=== PATIENT | female | born 1940 | race Caucasian/White ===

== ENCOUNTER 2017-07-24 14:53 | Inpatient (IN) | payer MEDICARE, OTHER ==
[~2017-07-24] VITALS: Ht 160 cm; Wt 52.2 kg
[2017-07-24 15:00] VITALS: BP 116/57; PULSE 75; RESP 18; Ht 160 cm; Wt 52.2 kg
[2017-07-24 16:18] LABS: ADD UMIC NO; UR ASCORBIC ACID NEGATIVE (NEGATIVE); UR BILIRUBIN (Dip) NEGATIVE (NEGATIVE); UR BLOOD (Dip) NEGATIVE (NEGATIVE); UR CLARITY CLEAR (CLEAR); UR COLOR YELLOW (YELLOW); UR GLUCOSE (Dip) NEGATIVE (NEGATIVE); UR KETONES (Dip) NEGATIVE (NEGATIVE); UR LEUKOCYTE ESTERASE (Dip) NEGATIVE Leu/ul (NEGATIVE); UR NITRITE (Dip) NEGATIVE (NEGATIVE); UR SPECIFIC GRAVITY (Dip) 1.009 (1.003-1.030); UR TOTAL PROTEIN (Dip) NEGATIVE (NEGATIVE); UR UROBILINOGEN (Dip) NEGATIVE (NEGATIVE)
[2017-07-24] MEDS ORDERED: BISACODYL 10 MG SUPP PR PRN (16:30)
[2017-07-24] MEDS ORDERED: LACTULOSE 30ML CUP PO PRN (16:30)
[2017-07-24] MEDS ORDERED: MAGNESIUM HYDROXIDE 30ML CUP PO PRN (16:30)
[2017-07-24] MEDS ORDERED: ACETAMINOPHEN 325 MG TAB PO PRN (16:30)
[2017-07-24 20:07] VITALS: BP 104/62; RESP 18
[2017-07-24] MEDS: SENNA TAB PO SCH (21:48)
[2017-07-24] MEDS: LISINOPRIL 20 MG TAB PO SCH (21:48)
[2017-07-24] MEDS: DOCUSATE SODIUM 100 MG CAP PO SCH (21:48)
[2017-07-25 02:10] VITALS: BP 110/65; RESP 18
[2017-07-25 07:00] VITALS: BP 140/68; RESP 18
[2017-07-25 07:34] LABS: BASOPHIL # 0.1 10^3/ul (0.0-0.1); EOSINOPHILS # 0.1 10^3/ul (0.0-0.5); EOSINOPHILS % 1.3 % (0.0-7.0); HEMATOCRIT 41.6 % (37.0-47.0); HEMOGLOBIN 13.9 g/dl (12.0-16.0); LYMPHOCYTES # 1.5 10^3/ul (0.8-2.9); LYMPHOCYTES % 22.1 % (15.0-51.0); MEAN CORPUSCULAR HEMOGLOBIN 30.7 pg (29.0-33.0); MEAN CORPUSCULAR HGB CONC 33.4 g/dl (32.0-37.0); MEAN CORPUSCULAR VOLUME 91.8 fl (82.0-101.0); MEAN PLATELET VOLUME 9.7 fl (7.4-10.4); MONOCYTE # 0.6 10^3/ul (0.3-0.9); MONOCYTES % 8.4 % (0.0-11.0); NEUTROPHIL # 4.6 10^3/ul (1.6-7.5); NEUTROPHILS % 66.8 % (39.0-77.0); PLATELET COUNT 259 10^3/UL (140-415); RED BLOOD COUNT 4.53 10^6/ul (4.20-5.40); WHITE BLOOD COUNT 6.9 10^3/ul (4.8-10.8)
[2017-07-25 08:08] LABS: ALBUMIN 3.7 g/dl (3.3-4.9); ALBUMIN/GLOBULIN RATIO 1.15; BILIRUBIN,INDIRECT 0.4 mg/dl (0-1.1); BILIRUBIN,TOTAL 0.4 mg/dl (0.2-1.3); CALCIUM 9.9 mg/dl (8.4-10.2); CHOL/HDL RATIO 1.9 RATIO; CREATININE 0.56 mg/dl (0.44-1.00); TOTAL PROTEIN 6.9 g/dl (6.1-8.1)
[2017-07-25 08:18] LABS: THYROID STIMULATING HORMONE 0.615 MIU/L (0.465-4.680)
[2017-07-25] MEDS: DOCUSATE SODIUM 100 MG CAP PO SCH ×2 (08:57→21:00)
[2017-07-25] MEDS: LISINOPRIL 20 MG TAB PO SCH ×2 (08:57→21:17)
[2017-07-25] MEDS: AMLODIPINE 10 MG TAB PO SCH (08:58)
--- NOTE | 2017-07-25 12:16 | CONS ---
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 ACTIVE COMORBIDITIES: 1. Hyperlipidemia. 2. Hypertension. 3. Dysphagia, on mechanical soft diet. 4. Impairments in self-care, mobility, and mild cognition. HISTORY OF PRESENT ILLNESS: The patient is a very pleasant 76-year-old left- handed female who had a recent admission for intracranial hemorrhage who was discharged home, but then returned to the emergency room with worsening right- sided weakness. Imaging studies revealed left pontine hemorrhage. The patient noted to have significant impairments in self-care and mobility as compared to baseline, and has been cleared to transfer to the rehabilitation unit for comprehensive interdisciplinary rehab care. FUNCTIONAL HISTORY: Prior to recent events, she was independent in self-care tasks and mobility. Currently, she requires moderate to maximal assist for self -care and mobility tasks. I have reviewed the preadmission screen and the patient's current functional status is consistent with the preadmission screen. SOCIAL HISTORY: The patient lives at home with family and hopes to return there upon discharge. PAST MEDICAL HISTORY: 1. Hyperlipidemia. 2. Hypertension. CURRENT MEDICATIONS: 1. Lisinopril 20 mg p.o. every day. 2. Amlodipine 10 mg p.o. every day. ALLERGIES: THE PATIENT WITH NO KNOWN DRUG ALLERGIES. PHYSICAL EXAMINATION: VITAL SIGNS: The patient is currently afebrile with stable vital signs. HEENT: Extraocular motion intact. Oropharynx clear. NECK: Supple. LUNGS: Clear anteriorly. CARDIAC: S1, S2. ABDOMEN: Soft, nontender, positive bowel sounds. NEUROLOGIC: She is awake and alert. She is oriented to person and hospital. She will follow simple 1-step commands. She demonstrates good strength in the left upper and lower extremity. She has 3 to 3-/5 strength in the right upper extremity. She has antigravity strength in the right lower extremity. PLAN: The patient has been admitted for comprehensive interdisciplinary acute rehab and is anticipated to tolerate 3 hours of daily therapy in divided doses for at least 5/7 days a week. The treatment plan will include: 1. Physical therapy to focus on bed mobility, transfers, and household ambulation with the goal of having patient reach a standby assist level. 2. Occupational therapy to focus on hygiene, grooming, dressing, bathing, and toileting activities with the goal of having the patient reach standby assist level. 3. Speech therapy for full cognitive assessment and retraining in addition to dysphagia management with the goal of having the patient meet nutritional needs by mouth and return to baseline cognition. 4. Rehabilitation nursing for carryover of therapeutic interventions, the goal of continent of bowel and bladder, and the goal of patient education with regard to the aforementioned issues. ESTIMATED LENGTH OF STAY: 14 days. DISPOSITION GOAL: Home. Rehabilitation Barrier: Weakness Intervention For Barrier: Interdisciplinary rehabilitation I acknowledge that I performed a full physical examination on this patient within 24 hours of admission to the rehabilitation unit and believe the patient is a good candidate for comprehensive interdisciplinary rehab care and is anticipated to make reasonable goals in a reasonable period of time as outlined above. Dictated By: JORGITO WATKINS/CAL Conf#: [id number] DID#: [id number] MTDD
--- NOTE | 2017-07-25 15:04 | HP ---
DATE OF ADMISSION: 07/24/2017 CHIEF COMPLAINT: Patient admitted for acute inpatient rehab after a pontine intracranial hemorrhage . HISTORY OF PRESENT ILLNESS: The patient is a 76-year-old female with history of hypertens ion who initially presented with some right-sided weakness and was hospitalized beginning of , found to have a left pontine intracerebral hemorrhage. The patient was stabilized and ultimately discharged home but at home, patient had increasing right-sided weakness, re-presented to the ER at [facility] and was found to have an increased left pontine intracerebral hemorrhage. The pat jenifer was seen by neurosurgery who felt no surgical intervention and followed by neurology. The nestor ent's blood pressure was controlled, symptoms were stable and patient was transferred for continuati on of rehab. The patient reports that her right-sided weakness is slightly improved but still signi ficant, especially right upper extremity weakness. The patient denies any headache, chest pain, rosamaria rtness of breath, dizziness or other complaints. PAST MEDICAL HISTORY: Left pontine intracerebral hemorrhage, hypertension, diastolic CHF, hyperlipi demia, left bundle branch block. MEDICATIONS: 1. Norvasc 10 mg daily. 2. Lisinopril 20 mg b.i.d. ALLERGIES: PATIENT HAS NO KNOWN DRUG ALLERGIES. OPERATIONS: None. SOCIAL HISTORY: The patient denies any tobacco for 30+ years, prior 07-[id number] history. Occasion al alcohol use. She is a housewife. FAMILY HISTORY: The patient's father at 93 from colon cancer. Mother at 70 from CHF. Th e patient has 4 sisters, one with coronary artery disease, 1 with osteoarthritis, 2 are alive and we ll. The patient has a son and 2 daughters who are alive and well. REVIEW OF SYSTEMS: GENERAL: The patient denies any fever, chills, night sweats or other general complaints. HEENT: The patient denies any headache, vision change, ear, nose, throat problems or other HEENT co mplaints. RESPIRATORY: The patient denies any cough, wheeze, shortness of breath or other respiratory complai nts. CARDIOVASCULAR: The patient denies any chest pains, palpitations, dizziness or other cardiovascular symptoms. GASTROINTESTINAL: The patient denies any abdominal pain, nausea, vomiting, difficulty swallowing, d iarrhea, bright red blood per rectum, melena or other GI symptoms. GENITOURINARY: The patient denies any dysuria, frequency or other symptoms. NEUROLOGIC: The patient reports persistent weakness in her right side of her face and right upper a nd lower extremities, especially in the right upper extremity, slightly improved from most recent pr esentation at [facility]. PHYSICAL EXAMINATION: VITAL SIGNS: Temperature 97.9, pulse 73, blood pressure 140/68. GENERAL APPEARANCE: This is a well-developed, well-nourished female in no acute distress. She appears nontoxic. HEENT: Normocephalic, atraumatic. Sclerae anicteric. Pupils equal, round, reactive to light. Ext raocular movements intact. Oropharynx is clear. NECK: Supple, no adenopathy, no bruits. LUNGS: Clear to auscultation. CARDIAC: Regular rate and rhythm with II/ systolic murmur. ABDOMEN: Bowel sounds are present. Abdomen is soft, nontender, nondistended. EXTREMITIES: Without cyanosis, clubbing or edema. NEUROLOGIC: The patient has right-sided facial weakness and right upper and lower extremity weaknes s. DATA: Labs on admission show white count of 6.9, hemoglobin 13.9, hematocrit 41.6, platelets 259. Sodium 141, potassium 4.0, chloride 104, bicarb 29, BUN 11, creatinine 0.56, glucose 106, bilirubin 0.4, AST 22, ALT 25, albumin 3.7. Triglycerides 70, total cholesterol 152, LDL 59, HDL 79. TSH 0.6 15. IMPRESSION: 1. Status post left pontine intracerebral hemorrhage with persistent right-sided weakness. 2. Hypertension. 3. Hyperlipidemia. 4. Diastolic congestive heart failure. 5. Left bundle branch block. PLAN: Patient admitted to acute rehab. Continue antihypertensives, Norvasc and lisinopril. Contin ue PT, OT, speech therapy. Plan is hopefully to return patient home after discharge. Dictated By: NELSON PRICE/CAL Conf#: [id number] DID#: [id number] CC: JORGITO JENNINGS MD;*EndCC*
[2017-07-25 20:00] VITALS: BP 114/63; RESP 18
[2017-07-25] MEDS: SENNA TAB PO SCH (21:00)
[2017-07-25] MEDS: ZOLPIDEM 5 MG TAB PO PRN (22:19)
[2017-07-26 02:00] VITALS: BP 120/70; RESP 18
[2017-07-26 07:30] VITALS: BP 128/64; RESP 18
[2017-07-26] MEDS: LISINOPRIL 20 MG TAB PO SCH ×2 (08:19→22:05)
[2017-07-26] MEDS: DOCUSATE SODIUM 100 MG CAP PO SCH ×2 (08:19→22:04)
[2017-07-26] MEDS: AMLODIPINE 10 MG TAB PO SCH (08:19)
--- NOTE | 2017-07-26 11:22 | CONS ---
Date/Time of Note Date/Time of Note DATE: 07/26/17 TIME: 11:20 Consult Date/Type/Reason Admit Date/Time Jul 24, 2017 at 14:53 Initial Consult Date Subjective Doing well with rehab program Objective pulm-cta min assist Vital Signs Date Time Temp Pulse Resp B/P Pulse Ox O2 Delivery O2 Flow Rate FiO2 07/26/17 07:30 98.0 71 18 128/64 94 07/24/17 15:00 Room Air Intake and Output 07/25/17 07/25/17 07/26/17 15:00 23:00 07:00 Intake Total 950 ml 800 ml 750 ml Output Total 200 ml 600 ml Balance 750 ml 200 ml 750 ml Results/Medications Result Diagram: 07/25/1761407/25/17614 Medications Current Medications Docusate Sodium (Colace) 100 mg BID PO Last administered on 07/26/17 08:19; Admin Dose 100 MG; Start 07/24/17 at 21:00 Senna (Senokot) 1 tab HS PO Last administered on 07/24/17 21:48; Admin Dose 1 TAB; Start 07/24/17 at 21:00 Acetaminophen (Tylenol Tab) 650 mg Q4H PRN PO PAIN; Start 07/24/17 at 16:30 Bisacodyl (Dulcolax Supp) 10 mg DAILY PRN [place] CONSTIPATION; Start 07/24/17 at 16:30 Magnesium Hydroxide (Milk Of Mag) 30 ml BID PRN PO CONSTIPATION; Start at 16:30 Lactulose (Enulose) 20 gm DAILY PRN PO CONSTIPATION; Start 07/24/17 at 16:30 Lisinopril (Zestril) 20 mg BID PO Last administered on 07/26/17 08:19; Admin Dose 20 MG; Start 07/24/17 at 21:00 Amlodipine Besylate (Norvasc) 10 mg DAILY PO Last administered on 07/26/17 08 :19; Admin Dose 10 MG; Start 07/25/17 at 09:00 Assessment/Plan Additional Assessment/Plan Rehab- 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 Continue interdisciplinary treatment plan Hyperlipidemia. Hypertension. Dysphagia, on mechanical soft diet. . JORGITO JENNINGS MD Jul 26, 2017 11:22
[2017-07-26 14:00] VITALS: BP 128/60; RESP 20
--- NOTE | 2017-07-26 17:26 | PN ---
Date/Time of Note Date/Time of Note DATE: 07/26/17 TIME: 17:22 Assessment/Plan VTE Prophylaxis VTE Prophylaxis Intervention: ambulation Lines/Catheters Urinary Cath still in place: No Assessment/Plan Assessment/Plan A: ICH/CVA with right sided residual weakness HTN controlled hyperlipidemia controlled P: cont PT/OT/ST cont current rx Subjective 24 Hr Interval Summary Free Text/Dictation Pt s/p ICH with residual rt weakness. Tolerating therapy, feeling a bit stronger. Some insomnia, responded to ambien. No cp, sob, dizziness. Tolerating diet. Exam/Review of Systems Vital Signs Vitals Vital Signs Date Time Temp Pulse Resp B/P Pulse Ox O2 Delivery O2 Flow Rate FiO2 07/26/17 14:00 98.2 74 20 128/60 96 07/24/17 15:00 Room Air Intake and Output 07/25/17 07/25/17 07/26/17 15:00 23:00 07:00 Intake Total 950 ml 800 ml 750 ml Output Total 200 ml 600 ml Balance 750 ml 200 ml 750 ml Exam gen- NAD, nontoxic. lungs- CTA heart- RRR abd- +BS, soft, nontender. ext- no edema Results Result Diagram: 07/25/1761407/25/1715 Medications Medications Current Medications Docusate Sodium (Colace) 100 mg BID PO Last administered on 07/26/17 08:19; Admin Dose 100 MG; Start 07/24/17 at 21:00 Senna (Senokot) 1 tab HS PO Last administered on 07/24/17 21:48; Admin Dose 1 TAB; Start 07/24/17 at 21:00 Acetaminophen (Tylenol Tab) 650 mg Q4H PRN PO PAIN; Start 07/24/17 at 16:30 Bisacodyl (Dulcolax Supp) 10 mg DAILY PRN [place] CONSTIPATION; Start 07/24/17 at 16:30 Magnesium Hydroxide (Milk Of Mag) 30 ml BID PRN PO CONSTIPATION; Start at 16:30 Lactulose (Enulose) 20 gm DAILY PRN PO CONSTIPATION; Start 07/24/17 at 16:30 Lisinopril (Zestril) 20 mg BID PO Last administered on 07/26/17 08:19; Admin Dose 20 MG; Start 07/24/17 at 21:00 Amlodipine Besylate (Norvasc) 10 mg DAILY PO Last administered on 07/26/17t 08 :19; Admin Dose 10 MG; Start 07/25/17 at 09:00 NELSON ELDER MD Jul 26, 2017 17:26
[2017-07-26 20:00] VITALS: BP 125/62; RESP 18
[2017-07-26] MEDS: SENNA TAB PO SCH (22:04)
[2017-07-26] MEDS: ZOLPIDEM 5 MG TAB PO PRN (22:59)
[2017-07-27 02:00] VITALS: BP 124/65; RESP 18
[2017-07-27 07:30] VITALS: BP 130/63; RESP 18
[2017-07-27] MEDS: DOCUSATE SODIUM 100 MG CAP PO SCH ×2 (08:02→20:08)
[2017-07-27] MEDS: LISINOPRIL 20 MG TAB PO SCH ×2 (08:04→20:07)
[2017-07-27] MEDS: AMLODIPINE 10 MG TAB PO SCH (08:04)
--- NOTE | 2017-07-27 08:15 | CONS ---
Date/Time of Note Date/Time of Note DATE: 07/27/17 TIME: 08:15 Consult Date/Type/Reason Admit Date/Time Jul 24, 2017 at 14:53 Subjective Patient motivated, no new complaints Objective pulm-cta min/mod transfer and ambulation Vital Signs Date Time Temp Pulse Resp B/P Pulse Ox O2 Delivery O2 Flow Rate FiO2 07/27/17 02:00 98.7 72 18 124/65 95 07/24/17 15:00 Room Air Intake and Output 07/26/17 07/26/17 07/27/17 15:00 23:00 07:00 Intake Total 1080 ml 850 ml Output Total 300 ml 1 ml Balance 780 ml 849 ml Results/Medications Result Diagram: 07/25/1761407/25/17614 Medications Current Medications Docusate Sodium (Colace) 100 mg BID PO Last administered on 07/26/17 22:04; Admin Dose 100 MG; Start 07/24/17 at 21:00 Senna (Senokot) 1 tab HS PO Last administered on 07/26/17 22:04; Admin Dose 1 TAB; Start 07/24/17 at 21:00 Acetaminophen (Tylenol Tab) 650 mg Q4H PRN PO PAIN; Start 07/24/17 at 16:30 Bisacodyl (Dulcolax Supp) 10 mg DAILY PRN [place] CONSTIPATION; Start 07/24/17 at 16:30 Magnesium Hydroxide (Milk Of Mag) 30 ml BID PRN PO CONSTIPATION; Start at 16:30 Lactulose (Enulose) 20 gm DAILY PRN PO CONSTIPATION; Start 07/24/17 at 16:30 Lisinopril (Zestril) 20 mg BID PO Last administered on 07/27/17 08:04; Admin Dose 20 MG; Start 07/24/17 at 21:00 Amlodipine Besylate (Norvasc) 10 mg DAILY PO Last administered on 07/27/17 08 :04; Admin Dose 10 MG; Start 07/25/17 at 09:00 Assessment/Plan Additional Assessment/Plan Rehab- 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 Excellent progress with rehab treatment plan Hyperlipidemia. Hypertension. Dysphagia, on mechanical soft diet. . JORGITO JENNINGS MD Jul 27, 2017 08:15
[2017-07-27 14:00] VITALS: BP 122/58; RESP 18
--- NOTE | 2017-07-27 14:12 | PN ---
Date/Time of Note Date/Time of Note DATE: 07/27/17 TIME: 14:09 Assessment/Plan VTE Prophylaxis VTE Prophylaxis Intervention: ambulation Lines/Catheters Urinary Cath still in place: No Assessment/Plan Assessment/Plan A: ICH with residual rt weakness HTN hyperlipidemia P: cont therapies cont current rx Subjective 24 Hr Interval Summary Free Text/Dictation Pt feeling about the same. Tolerating therapy. Tolerating diet. No cp, sob, dizziness. Had bm this am. Exam/Review of Systems Vital Signs Vitals Vital Signs Date Time Temp Pulse Resp B/P Pulse Ox O2 Delivery O2 Flow Rate FiO2 07/27/17 07:30 97.9 74 18 130/63 97 07/24/17 15:00 Room Air Intake and Output 07/26/17 07/26/17 07/27/17 15:00 23:00 07:00 Intake Total 1080 ml 850 ml Output Total 300 ml 1 ml Balance 780 ml 849 ml Exam gen- NAD, nontoxic lungs- CTA heart- RRR abd- +BS, soft, nontender ext- no edema neuro- rt sided weakness UE>LE Results Result Diagram: 07/25/1715 07/25/17 0615 Medications Medications Current Medications Docusate Sodium (Colace) 100 mg BID PO Last administered on 07/26/17 22:04; Admin Dose 100 MG; Start 07/24/17 at 21:00 Senna (Senokot) 1 tab HS PO Last administered on 07/26/17 22:04; Admin Dose 1 TAB; Start 07/24/17 at 21:00 Acetaminophen (Tylenol Tab) 650 mg Q4H PRN PO PAIN; Start 07/24/17 at 16:30 Bisacodyl (Dulcolax Supp) 10 mg DAILY PRN [place] CONSTIPATION; Start 07/24/17 at 16:30 Magnesium Hydroxide (Milk Of Mag) 30 ml BID PRN PO CONSTIPATION; Start at 16:30 Lactulose (Enulose) 20 gm DAILY PRN PO CONSTIPATION; Start 07/24/17 at 16:30 Lisinopril (Zestril) 20 mg BID PO Last administered on 07/27/17 08:04; Admin Dose 20 MG; Start 07/24/17 at 21:00 Amlodipine Besylate (Norvasc) 10 mg DAILY PO Last administered on 07/27/17 08 :04; Admin Dose 10 MG; Start 07/25/17 at 09:00 NELSON ELDER MD Jul 27, 2017 14:12
[2017-07-27 19:30] VITALS: BP 122/63; RESP 18
[2017-07-27] MEDS: ZOLPIDEM 5 MG TAB PO PRN (20:07)
[2017-07-27] MEDS: SENNA TAB PO SCH (20:08)
[2017-07-28 02:32] VITALS: BP 123/61; RESP 18
[2017-07-28 07:00] VITALS: BP 147/72; RESP 18
[2017-07-28] MEDS: AMLODIPINE 10 MG TAB PO SCH (08:30)
[2017-07-28] MEDS: LISINOPRIL 20 MG TAB PO SCH ×2 (08:31→21:15)
[2017-07-28] MEDS: DOCUSATE SODIUM 100 MG CAP PO SCH ×2 (08:32→21:00)
[2017-07-28 14:00] VITALS: BP 139/69; RESP 18
--- NOTE | 2017-07-28 16:03 | PN ---
Date/Time of Note Date/Time of Note DATE: 07/28/17 TIME: 15:58 Assessment/Plan VTE Prophylaxis VTE Prophylaxis Intervention: ambulation Lines/Catheters Urinary Cath still in place: No Assessment/Plan Assessment/Plan A: hemorrhagic CVA HTN hyperlipidemia P: cont PT/OT/ST cont current rx Subjective 24 Hr Interval Summary Free Text/Dictation Pt with rt weakness from hemorrhagic CVA. Feeling pretty good, some occ insomnia responds to ambien. No cp, sob, dizziness. Tolerating diet. BM today. Exam/Review of Systems Vital Signs Vitals Vital Signs Date Time Temp Pulse Resp B/P Pulse Ox O2 Delivery O2 Flow Rate FiO2 07/28/17 07:00 97.7 73 18 147/72 94 07/24/17 15:00 Room Air Intake and Output 07/27/17 07/27/17 07/28/17 14:59 22:59 06:59 Intake Total 1130 ml Output Total 201 ml Balance 929 ml Exam gen- nad, nontoxic lungs- CTA heart- RRR ext- no cce. Results Result Diagram: 07/25/1761407/25/1715 Medications Medications Current Medications Docusate Sodium (Colace) 100 mg BID PO Last administered on 07/26/17 22:04; Admin Dose 100 MG; Start 07/24/17 at 21:00 Senna (Senokot) 1 tab HS PO Last administered on 07/26/17 22:04; Admin Dose 1 TAB; Start 07/24/17 at 21:00 Acetaminophen (Tylenol Tab) 650 mg Q4H PRN PO PAIN; Start 07/24/17 at 16:30 Bisacodyl (Dulcolax Supp) 10 mg DAILY PRN [place] CONSTIPATION; Start 07/24/17 at 16:30 Magnesium Hydroxide (Milk Of Mag) 30 ml BID PRN PO CONSTIPATION; Start at 16:30 Lactulose (Enulose) 20 gm DAILY PRN PO CONSTIPATION; Start 07/24/17 at 16:30 Lisinopril (Zestril) 20 mg BID PO Last administered on 07/28/17 08:31; Admin Dose 20 MG; Start 07/24/17 at 21:00 Amlodipine Besylate (Norvasc) 10 mg DAILY PO Last administered on 07/28/17 08 :30; Admin Dose 10 MG; Start 07/25/17 at 09:00 NELSON ELDER MD Jul 28, 2017 16:03
[2017-07-28 19:53] VITALS: BP 109/64; RESP 18
[2017-07-28] MEDS: SENNA TAB PO SCH (21:00)
[2017-07-28] MEDS: ZOLPIDEM 5 MG TAB PO PRN (21:15)
[2017-07-29 02:00] VITALS: BP 142/68; PULSE 87; RESP 18
[2017-07-29 07:00] VITALS: BP 139/62; RESP 18
[2017-07-29] MEDS: DOCUSATE SODIUM 100 MG CAP PO SCH ×2 (09:00→21:00)
[2017-07-29] MEDS: AMLODIPINE 10 MG TAB PO SCH (09:03)
[2017-07-29] MEDS: LISINOPRIL 20 MG TAB PO SCH ×2 (09:03→20:53)
--- NOTE | 2017-07-29 12:42 | CONS ---
Date/Time of Note Date/Time of Note DATE: 07/29/17 TIME: 12:42 Consult Date/Type/Reason Admit Date/Time Jul 24, 2017 at 14:53 Subjective Motivated for all activities Objective Vital Signs Date Time Temp Pulse Resp B/P Pulse Ox O2 Delivery O2 Flow Rate FiO2 07/29/17 07:00 97.8 73 18 139/62 96 07/29/17 02:00 Room Air Intake and Output 07/28/17 07/28/17 07/29/17 14:59 22:59 06:59 Intake Total 1720 ml 180 ml Output Total 1050 ml 350 ml Balance 670 ml -170 ml INTERDISCIPLINARY TEAM CONFERENCE BOWEL- Cont BLADDER-Cont SKIN- intact OT- DRESSING-min/mod BATHING-min/mod TOILETING-min/mod PT- BED MOBILITY-min/mod TRANSFERS-min/mod AMBULATION-min 50 feet SPEECH- COGNITION-HI DYPHAGIA-tolerating diet well. Education for patient and family completed A/P- Interdisciplinary team conference held today. Please see interdisciplinary sheet. Working toward d.c. on 08/03 with post discharge follow up of physical therapy, occupational therapy. Results/Medications Result Diagram: 07/25/1761407/25/1715 Medications Current Medications Docusate Sodium (Colace) 100 mg BID PO Last administered on 07/26/17 22:04; Admin Dose 100 MG; Start 07/24/17 at 21:00 Senna (Senokot) 1 tab HS PO Last administered on 07/26/17 22:04; Admin Dose 1 TAB; Start 07/24/17 at 21:00 Acetaminophen (Tylenol Tab) 650 mg Q4H PRN PO PAIN; Start 07/24/17 at 16:30 Bisacodyl (Dulcolax Supp) 10 mg DAILY PRN [place] CONSTIPATION; Start 07/24/17 at 16:30 Magnesium Hydroxide (Milk Of Mag) 30 ml BID PRN PO CONSTIPATION; Start at 16:30 Lactulose (Enulose) 20 gm DAILY PRN PO CONSTIPATION; Start 07/24/17 at 16:30 Lisinopril (Zestril) 20 mg BID PO Last administered on 07/29/17 09:03; Admin Dose 20 MG; Start 07/24/17 at 21:00 Amlodipine Besylate (Norvasc) 10 mg DAILY PO Last administered on 07/29/17t 09 :03; Admin Dose 10 MG; Start 07/25/17 at 09:00 JORGITO JENNINGS MD Jul 29, 2017 12:42
[2017-07-29 14:00] VITALS: BP 124/61; RESP 18
--- NOTE | 2017-07-29 14:51 | PN ---
Date/Time of Note Date/Time of Note DATE: 07/29/17 TIME: 14:49 Assessment/Plan VTE Prophylaxis VTE Prophylaxis Intervention: ambulation Lines/Catheters Urinary Cath still in place: No Assessment/Plan Assessment/Plan A: hemorrhagic CVA HTN hyperlipidemia P: cont pt/ot/st cont current rx Subjective 24 Hr Interval Summary Free Text/Dictation Pt tolerating therapies, diet. Had bm today. No cp, sob, dizziness. Exam/Review of Systems Vital Signs Vitals Vital Signs Date Time Temp Pulse Resp B/P Pulse Ox O2 Delivery O2 Flow Rate FiO2 07/29/17 07:00 97.8 73 18 139/62 96 07/29/17 02:00 Room Air Intake and Output 07/28/17 07/28/17 07/29/17 15:00 23:00 07:00 Intake Total 1720 ml 180 ml Output Total 1050 ml 350 ml Balance 670 ml -170 ml Exam gen- nad, nontoxic. lungs- cta heart- rrr abd- +bs, soft, nontender ext- no cce. Results Result Diagram: 07/25/1761407/25/1715 Medications Medications Current Medications Docusate Sodium (Colace) 100 mg BID PO Last administered on 07/26/17 22:04; Admin Dose 100 MG; Start 07/24/17 at 21:00 Senna (Senokot) 1 tab HS PO Last administered on 07/26/17 22:04; Admin Dose 1 TAB; Start 07/24/17 at 21:00 Acetaminophen (Tylenol Tab) 650 mg Q4H PRN PO PAIN; Start 07/24/17 at 16:30 Bisacodyl (Dulcolax Supp) 10 mg DAILY PRN [place] CONSTIPATION; Start 07/24/17 at 16:30 Magnesium Hydroxide (Milk Of Mag) 30 ml BID PRN PO CONSTIPATION; Start at 16:30 Lactulose (Enulose) 20 gm DAILY PRN PO CONSTIPATION; Start 07/24/17 at 16:30 Lisinopril (Zestril) 20 mg BID PO Last administered on 07/29/17 09:03; Admin Dose 20 MG; Start 07/24/17 at 21:00 Amlodipine Besylate (Norvasc) 10 mg DAILY PO Last administered on 07/29/17 09 :03; Admin Dose 10 MG; Start 07/25/17 at 09:00 NELSON ELDER MD Jul 29, 2017 14:51
[2017-07-29 19:58] VITALS: BP 127/60; RESP 18
[2017-07-29] MEDS: ZOLPIDEM 5 MG TAB PO PRN (20:52)
[2017-07-29 20:55] VITALS: BP 117/57; PULSE 74
[2017-07-29] MEDS: SENNA TAB PO SCH (21:00)
[2017-07-30 02:00] VITALS: BP 123/61; RESP 18
[2017-07-30 08:00] VITALS: BP 148/68; PULSE 66; RESP 18
[2017-07-30] MEDS: DOCUSATE SODIUM 100 MG CAP PO SCH ×2 (09:00→20:03)
--- NOTE | 2017-07-30 09:39 | CONS ---
Date/Time of Note Date/Time of Note DATE: 07/30/17 TIME: 09:38 Consult Date/Type/Reason Admit Date/Time Jul 24, 2017 at 14:53 Subjective Functional status reviewed with daughter yesterday, and they are agreeable with current treatment plan Patient reports her AFO is malfitting Objective min assist ambulation Vital Signs Date Time Temp Pulse Resp B/P Pulse Ox O2 Delivery O2 Flow Rate FiO2 07/30/17 02:00 97.8 71 18 123/61 96 07/29/17 02:00 Room Air Intake and Output 07/29/17 07/29/17 07/30/17 15:00 23:00 07:00 Intake Total 1800 ml Output Total 1200 ml 350 ml Balance 600 ml -350 ml Results/Medications Medications Current Medications Docusate Sodium (Colace) 100 mg BID PO Last administered on 07/26/17 22:04; Admin Dose 100 MG; Start 07/24/17 at 21:00 Senna (Senokot) 1 tab HS PO Last administered on 07/26/17 22:04; Admin Dose 1 TAB; Start 07/24/17 at 21:00 Acetaminophen (Tylenol Tab) 650 mg Q4H PRN PO PAIN; Start 07/24/17 at 16:30 Bisacodyl (Dulcolax Supp) 10 mg DAILY PRN [place] CONSTIPATION; Start 07/24/17 at 16:30 Magnesium Hydroxide (Milk Of Mag) 30 ml BID PRN PO CONSTIPATION; Start at 16:30 Lactulose (Enulose) 20 gm DAILY PRN PO CONSTIPATION; Start 07/24/17 at 16:30 Lisinopril (Zestril) 20 mg BID PO Last administered on 07/29/17 20:53; Admin Dose 20 MG; Start 07/24/17 at 21:00 Amlodipine Besylate (Norvasc) 10 mg DAILY PO Last administered on 07/29/17 09 :03; Admin Dose 10 MG; Start 07/25/17 at 09:00 Assessment/Plan Additional Assessment/Plan Rehab- 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 Continue rehab program. Working towards dc on Saturday. Will have valve lapper adjust AFO Hyperlipidemia. Hypertension. . JORGITO JENNINGS MD Jul 30, 2017 09:39
[2017-07-30] MEDS: LISINOPRIL 20 MG TAB PO SCH ×2 (10:23→20:01)
[2017-07-30] MEDS: AMLODIPINE 10 MG TAB PO SCH (10:23)
--- NOTE | 2017-07-30 18:01 | PN ---
Date/Time of Note Date/Time of Note DATE: 07/30/17 TIME: 17:58 Assessment/Plan VTE Prophylaxis VTE Prophylaxis Intervention: ambulation Lines/Catheters Urinary Cath still in place: No Assessment/Plan Assessment/Plan A: hemorrhagic CVA HTN hyperlipidemia P: cont therapies cont current rx Subjective 24 Hr Interval Summary Free Text/Dictation Pt with continued improvement. Tolerating therapy. No cp, sob, abd pain. Exam/Review of Systems Vital Signs Vitals Vital Signs Date Time Temp Pulse Resp B/P Pulse Ox O2 Delivery O2 Flow Rate FiO2 07/30/17 08:00 98.0 66 18 148/68 97 07/29/17 02:00 Room Air Intake and Output 07/29/17 07/29/17 07/30/17 15:00 23:00 07:00 Intake Total 1800 ml Output Total 1200 ml 350 ml Balance 600 ml -350 ml Exam gen- nad, nontoxic. lungs- cta heart- RRR abd- +BS, soft, nontender ext- no cce. Medications Medications Current Medications Docusate Sodium (Colace) 100 mg BID PO Last administered on 07/26/17 22:04; Admin Dose 100 MG; Start 07/24/17 at 21:00 Senna (Senokot) 1 tab HS PO Last administered on 07/26/17 22:04; Admin Dose 1 TAB; Start 07/24/17 at 21:00 Acetaminophen (Tylenol Tab) 650 mg Q4H PRN PO PAIN; Start 07/24/17 at 16:30 Bisacodyl (Dulcolax Supp) 10 mg DAILY PRN [place] CONSTIPATION; Start 07/24/17 at 16:30 Magnesium Hydroxide (Milk Of Mag) 30 ml BID PRN PO CONSTIPATION; Start at 16:30 Lactulose (Enulose) 20 gm DAILY PRN PO CONSTIPATION; Start 07/24/17 at 16:30 Lisinopril (Zestril) 20 mg BID PO Last administered on 07/30/17 10:23; Admin Dose 20 MG; Start 07/24/17 at 21:00 Amlodipine Besylate (Norvasc) 10 mg DAILY PO Last administered on 07/30/17 10 :23; Admin Dose 10 MG; Start 07/25/17 at 09:00 NELSON ELDER MD Jul 30, 2017 18:01
[2017-07-30 20:00] VITALS: BP 135/61; RESP 18
[2017-07-30] MEDS: ZOLPIDEM 5 MG TAB PO PRN (20:01)
[2017-07-30] MEDS: SENNA TAB PO SCH (20:03)
[2017-07-31 01:30] VITALS: BP 107/52; RESP 18
[2017-07-31 02:00] VITALS: BP 139/60; RESP 18
[2017-07-31 07:30] VITALS: BP 138/67; RESP 18
[2017-07-31] MEDS: AMLODIPINE 10 MG TAB PO SCH (08:16)
[2017-07-31] MEDS: LISINOPRIL 20 MG TAB PO SCH ×2 (08:16→21:21)
[2017-07-31] MEDS: DOCUSATE SODIUM 100 MG CAP PO SCH ×2 (09:00→21:00)
--- NOTE | 2017-07-31 09:02 | CONS ---
Date/Time of Note Date/Time of Note DATE: 07/31/17 TIME: 09:01 Consult Date/Type/Reason Admit Date/Time Jul 24, 2017 at 14:53 Subjective Patient motivated At bedside to adjust AFO Objective min assist 50 feet Vital Signs Date Time Temp Pulse Resp B/P Pulse Ox O2 Delivery O2 Flow Rate FiO2 07/31/17 02:00 98.2 76 18 139/60 97 07/30/17 08:00 Room Air Intake and Output 07/30/17 07/30/17 07/31/17 15:00 23:00 07:00 Intake Total 350 ml Output Total 150 ml 650 ml Balance 200 ml -650 ml Results/Medications Medications Current Medications Docusate Sodium (Colace) 100 mg BID PO Last administered on 07/26/17 22:04; Admin Dose 100 MG; Start 07/24/17 at 21:00 Senna (Senokot) 1 tab HS PO Last administered on 07/26/17 22:04; Admin Dose 1 TAB; Start 07/24/17 at 21:00 Acetaminophen (Tylenol Tab) 650 mg Q4H PRN PO PAIN; Start 07/24/17 at 16:30 Bisacodyl (Dulcolax Supp) 10 mg DAILY PRN [place] CONSTIPATION; Start 07/24/17 at 16:30 Magnesium Hydroxide (Milk Of Mag) 30 ml BID PRN PO CONSTIPATION; Start at 16:30 Lactulose (Enulose) 20 gm DAILY PRN PO CONSTIPATION; Start 07/24/17 at 16:30 Lisinopril (Zestril) 20 mg BID PO Last administered on 07/31/17 08:16; Admin Dose 20 MG; Start 07/24/17 at 21:00 Amlodipine Besylate (Norvasc) 10 mg DAILY PO Last administered on 07/31/17 08 :16; Admin Dose 10 MG; Start 07/25/17 at 09:00 Assessment/Plan Additional Assessment/Plan Rehab- 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 Excellent progress with rehab. Continue program and family training Hyperlipidemia. Hypertension. JORGITO JENNINGS MD Jul 31, 2017 09:02
[2017-07-31 14:00] VITALS: BP 130/60; RESP 18
--- NOTE | 2017-07-31 19:19 | PN ---
Date/Time of Note Date/Time of Note DATE: 07/31/17 TIME: 19:17 Assessment/Plan VTE Prophylaxis VTE Prophylaxis Intervention: ambulation Lines/Catheters Urinary Cath still in place: No Assessment/Plan Assessment/Plan A: hemorrhagic CVA HTN hyperlipidemia P: cont current rx Subjective 24 Hr Interval Summary Free Text/Dictation Pt with hemorrhagic CVA with rt weakness. Tolerating therapies. No cp, sob, dizziness. Exam/Review of Systems Vital Signs Vitals Vital Signs Date Time Temp Pulse Resp B/P Pulse Ox O2 Delivery O2 Flow Rate FiO2 07/31/17 14:00 98.3 79 18 130/60 96 07/30/17 08:00 Room Air Intake and Output 07/30/17 07/30/17 07/31/17 15:00 23:00 07:00 Intake Total 350 ml Output Total 150 ml 650 ml Balance 200 ml -650 ml Exam gen- NAD, nontoxic lungs- CTA heart- RRR abd- +BS, soft, nontender ext- no cce. Medications Medications Current Medications Docusate Sodium (Colace) 100 mg BID PO Last administered on 07/26/17 22:04; Admin Dose 100 MG; Start 07/24/17 at 21:00 Senna (Senokot) 1 tab HS PO Last administered on 07/26/17 22:04; Admin Dose 1 TAB; Start 07/24/17 at 21:00 Acetaminophen (Tylenol Tab) 650 mg Q4H PRN PO PAIN; Start 07/24/17 at 16:30 Bisacodyl (Dulcolax Supp) 10 mg DAILY PRN [place] CONSTIPATION; Start 07/24/17 at 16:30 Magnesium Hydroxide (Milk Of Mag) 30 ml BID PRN PO CONSTIPATION; Start at 16:30 Lactulose (Enulose) 20 gm DAILY PRN PO CONSTIPATION; Start 07/24/17 at 16:30 Lisinopril (Zestril) 20 mg BID PO Last administered on 07/31/17 08:16; Admin Dose 20 MG; Start 07/24/17 at 21:00 Amlodipine Besylate (Norvasc) 10 mg DAILY PO Last administered on 07/31/17 08 :16; Admin Dose 10 MG; Start 07/25/17 at 09:00 NELSON ELDER MD Jul 31, 2017 19:19
[2017-07-31 20:00] VITALS: BP 126/63; RESP 18
[2017-07-31] MEDS: SENNA TAB PO SCH (21:00)
[2017-07-31] MEDS: ZOLPIDEM 5 MG TAB PO PRN (21:23)
[2017-08-01 02:01] VITALS: BP 120/65; RESP 18
[2017-08-01 07:00] VITALS: BP 140/77; RESP 18
[2017-08-01 08:00] VITALS: BP 140/77; RESP 18
[2017-08-01] MEDS: DOCUSATE SODIUM 100 MG CAP PO SCH ×2 (08:37→21:00)
[2017-08-01] MEDS: AMLODIPINE 10 MG TAB PO SCH (08:38)
[2017-08-01] MEDS: LISINOPRIL 20 MG TAB PO SCH ×2 (08:38→21:07)
--- NOTE | 2017-08-01 10:29 | CONS ---
Date/Time of Note Date/Time of Note DATE: 08/01/17 TIME: 10:22 Consult Date/Type/Reason Admit Date/Time Jul 24, 2017 at 14:53 Subjective Patient in good spirits Objective supervised wc mobility min ambulation Vital Signs Date Time Temp Pulse Resp B/P Pulse Ox O2 Delivery O2 Flow Rate FiO2 08/01/17 08:00 97.9 18 140/77 96 Room Air 08/01/17 02:01 78 Intake and Output 07/31/17 07/31/17 08/01/17 15:00 23:00 07:00 Intake Total 1100 ml 1150 ml Output Total 900 ml Balance 1100 ml 250 ml Results/Medications Medications Current Medications Docusate Sodium (Colace) 100 mg BID PO Last administered on 07/26/17 22:04; Admin Dose 100 MG; Start 07/24/17 at 21:00 Senna (Senokot) 1 tab HS PO Last administered on 07/26/17 22:04; Admin Dose 1 TAB; Start 07/24/17 at 21:00 Acetaminophen (Tylenol Tab) 650 mg Q4H PRN PO PAIN; Start 07/24/17 at 16:30 Bisacodyl (Dulcolax Supp) 10 mg DAILY PRN [place] CONSTIPATION; Start 07/24/17 at 16:30 Magnesium Hydroxide (Milk Of Mag) 30 ml BID PRN PO CONSTIPATION; Start at 16:30 Lactulose (Enulose) 20 gm DAILY PRN PO CONSTIPATION; Start 07/24/17 at 16:30 Lisinopril (Zestril) 20 mg BID PO Last administered on 08/01/17 08:38; Admin Dose 20 MG; Start 07/24/17 at 21:00 Amlodipine Besylate (Norvasc) 10 mg DAILY PO Last administered on 08/01/17 08 :38; Admin Dose 10 MG; Start 07/25/17 at 09:00 Assessment/Plan Additional Assessment/Plan Rehab- 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 Continue current treatment plan Hyperlipidemia. Hypertension. JORGITO JENNINGS MD Aug 01, 2017 10:29
[2017-08-01 14:00] VITALS: BP 137/61; RESP 18
--- NOTE | 2017-08-01 14:07 | PN ---
Date/Time of Note Date/Time of Note DATE: 08/01/17 TIME: 14:04 Assessment/Plan VTE Prophylaxis VTE Prophylaxis Intervention: ambulation Lines/Catheters Urinary Cath still in place: No Assessment/Plan Assessment/Plan A: hemorrhagic CVA with rt sided weakness HTN hyperlipidemia P: cont PT/OT/ST cont current rx Subjective 24 Hr Interval Summary Free Text/Dictation Pt with hemorrhagic CVA and residual rt weakness. Tolerating therapy. No new complaints. Exam/Review of Systems Vital Signs Vitals Vital Signs Date Time Temp Pulse Resp B/P Pulse Ox O2 Delivery O2 Flow Rate FiO2 08/01/17 08:00 97.9 18 140/77 96 Room Air 08/01/17 07:00 78 Intake and Output 07/31/17 07/31/17 08/01/17 15:00 23:00 07:00 Intake Total 1100 ml 1150 ml Output Total 900 ml Balance 1100 ml 250 ml Exam gen- NAD, nontoxic. lungs- CTA heart- RRR abd- +BS, soft, nontender ext- no cce Medications Medications Current Medications Docusate Sodium (Colace) 100 mg BID PO Last administered on 07/26/17 22:04; Admin Dose 100 MG; Start 07/24/17 at 21:00 Senna (Senokot) 1 tab HS PO Last administered on 07/26/17 22:04; Admin Dose 1 TAB; Start 07/24/17 at 21:00 Acetaminophen (Tylenol Tab) 650 mg Q4H PRN PO PAIN; Start 07/24/17 at 16:30 Bisacodyl (Dulcolax Supp) 10 mg DAILY PRN [place] CONSTIPATION; Start 07/24/17 at 16:30 Magnesium Hydroxide (Milk Of Mag) 30 ml BID PRN PO CONSTIPATION; Start at 16:30 Lactulose (Enulose) 20 gm DAILY PRN PO CONSTIPATION; Start 07/24/17 at 16:30 Lisinopril (Zestril) 20 mg BID PO Last administered on 08/01/17 08:38; Admin Dose 20 MG; Start 07/24/17 at 21:00 Amlodipine Besylate (Norvasc) 10 mg DAILY PO Last administered on 08/01/17 08 :38; Admin Dose 10 MG; Start 07/25/17 at 09:00 NELSON ELDER MD Aug 01, 2017 14:07
[2017-08-01 19:25] VITALS: BP 121/59; RESP 18
[2017-08-01] MEDS: SENNA TAB PO SCH (21:00)
[2017-08-01] MEDS: ZOLPIDEM 5 MG TAB PO PRN (21:07)
[2017-08-02] MEDS: ZOLPIDEM 5 MG TAB PO PRN ×2 (00:35→20:23)
[2017-08-02 02:24] VITALS: BP 114/59; RESP 18
[2017-08-02 07:30] VITALS: BP 141/73; RESP 20
--- NOTE | 2017-08-02 07:57 | RADRPT ---
PROCEDURE: Right hand x-ray CLINICAL INDICATION: pain, swelling TECHNIQUE: AP and lateral views of the hand were obtained. COMPARISON: None FINDINGS: There is normal mineralization. No acute fracture or dislocation is seen. Mild degenerative changes are seen at the PIP joint of the first digit. There is no significant soft tissue swelling. IMPRESSION: Mild degenerative changes are seen at the PIP joint of the first digit. Otherwise, no significant ab normalities are identified. RPTAT:AAJJ Physician Sarbjit Date Time Electronically viewed and signed by David Ibarra Physician on 08/02/2017 07:57 YULISSA/
--- NOTE | 2017-08-02 08:19 | CONS ---
Date/Time of Note Date/Time of Note DATE: 08/02/17 TIME: Consult Date/Type/Reason Admit Date/Time Jul 24, 2017 at 14:53 Subjective Patient reports some right thumb discomfort. Denies any trauma Objective The right thumb tenderness to palpation at the PIP Standby assist Vital Signs Date Time Temp Pulse Resp B/P Pulse Ox O2 Delivery O2 Flow Rate FiO2 08/02/17 02:24 97.9 18 114/59 96 08/01/17 19:25 80 08/01/17 08:00 Room Air Intake and Output 08/01/17 08/01/17 08/02/17 15:00 23:00 07:00 Intake Total 1800 ml 350 ml Output Total 1200 ml 1 ml Balance 600 ml 349 ml Results/Medications Medications Current Medications Docusate Sodium (Colace) 100 mg BID PO Last administered on 07/26/17 22:04; Admin Dose 100 MG; Start 07/24/17 at 21:00 Senna (Senokot) 1 tab HS PO Last administered on 07/26/17 22:04; Admin Dose 1 TAB; Start 07/24/17 at 21:00 Acetaminophen (Tylenol Tab) 650 mg Q4H PRN PO PAIN; Start 07/24/17 at 16:30 Bisacodyl (Dulcolax Supp) 10 mg DAILY PRN [place] CONSTIPATION; Start 07/24/17 at 16:30 Magnesium Hydroxide (Milk Of Mag) 30 ml BID PRN PO CONSTIPATION; Start at 16:30 Lactulose (Enulose) 20 gm DAILY PRN PO CONSTIPATION; Start 07/24/17 at 16:30 Lisinopril (Zestril) 20 mg BID PO Last administered on 08/01/17 21:07; Admin Dose 20 MG; Start 07/24/17 at 21:00 Amlodipine Besylate (Norvasc) 10 mg DAILY PO Last administered on 08/01/17 08 :38; Admin Dose 10 MG; Start 07/25/17 at 09:00 Assessment/Plan Additional Assessment/Plan Rehab- 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 Will order right hand x-ray, likely right thumb sprain. Family training and progress. Anticipate discharge tomorrow Hyperlipidemia. Hypertension. JORGITO EJNNINGS MD Aug 02, 2017 08:19
[2017-08-02] MEDS: AMLODIPINE 10 MG TAB PO SCH (08:35)
[2017-08-02] MEDS: LISINOPRIL 20 MG TAB PO SCH ×2 (08:36→20:23)
[2017-08-02] MEDS: DOCUSATE SODIUM 100 MG CAP PO SCH ×2 (08:40→21:00)
[2017-08-02 14:00] VITALS: BP 143/65; RESP 18
--- NOTE | 2017-08-02 15:30 | PN ---
Date/Time of Note Date/Time of Note DATE: 08/02/17 TIME: 15:27 Assessment/Plan VTE Prophylaxis VTE Prophylaxis Intervention: ambulation Lines/Catheters Urinary Cath still in place: No Assessment/Plan Assessment/Plan A: arthritis rt thumb hemorrhagic CVA HTN P: anticipate d/c home tomorrow tylenol prn cont current rx Subjective 24 Hr Interval Summary Free Text/Dictation Pt with hemorrhagic CVA with rt sided weakness, tolerating therapy. Mild pain at base of rt thumb. No specific trauma recalled. Improved with tylenol. No cp, sob, dizziness. Exam/Review of Systems Vital Signs Vitals Vital Signs Date Time Temp Pulse Resp B/P Pulse Ox O2 Delivery O2 Flow Rate FiO2 08/02/17 07:30 98.1 73 20 141/73 97 08/01/17 08:00 Room Air Intake and Output 08/01/17 08/01/17 08/02/17 15:00 23:00 07:00 Intake Total 1800 ml 350 ml Output Total 1200 ml 1 ml Balance 600 ml 349 ml Exam gen- nad, nontoxic lungs- cta heart- RRR abd- +BS, soft, nontender ext- no cce, mild swelling base of rt thumb, rom okay. Medications Medications Current Medications Docusate Sodium (Colace) 100 mg BID PO Last administered on 07/26/17 22:04; Admin Dose 100 MG; Start 07/24/17 at 21:00 Senna (Senokot) 1 tab HS PO Last administered on 07/26/17 22:04; Admin Dose 1 TAB; Start 07/24/17 at 21:00 Acetaminophen (Tylenol Tab) 650 mg Q4H PRN PO PAIN; Start 07/24/17 at 16:30 Bisacodyl (Dulcolax Supp) 10 mg DAILY PRN [place] CONSTIPATION; Start 07/24/17 at 16:30 Magnesium Hydroxide (Milk Of Mag) 30 ml BID PRN PO CONSTIPATION; Start at 16:30 Lactulose (Enulose) 20 gm DAILY PRN PO CONSTIPATION; Start 07/24/17 at 16:30 Lisinopril (Zestril) 20 mg BID PO Last administered on 08/02/17 08:36; Admin Dose 20 MG; Start 07/24/17 at 21:00 Amlodipine Besylate (Norvasc) 10 mg DAILY PO Last administered on 08/02/17 08 :35; Admin Dose 10 MG; Start 07/25/17 at 09:00 NELSON ELDER MD Aug 02, 2017 15:30
[2017-08-02 20:19] VITALS: BP 137/62; RESP 18
[2017-08-02] MEDS: SENNA TAB PO SCH (21:00)
[2017-08-03] MEDS: ZOLPIDEM 5 MG TAB PO PRN (00:15)
[2017-08-03 02:00] VITALS: BP 128/65; RESP 18
[2017-08-03] MEDS: LISINOPRIL 20 MG TAB PO SCH (08:32)
[2017-08-03] MEDS: AMLODIPINE 10 MG TAB PO SCH (08:32)
[2017-08-03] MEDS: DOCUSATE SODIUM 100 MG CAP PO SCH (08:33)
[2017-08-03 09:09] VITALS: BP 153/69; RESP 20
--- NOTE | 2017-08-03 10:16 | DS ---
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 2. Hypertension. 3. Dysphagia, improved 4. Improvements in self-care, mobility mild cognition. Patient Condition: Good Hospital Course Patient was admitted for comprehensive interdisciplinary acute rehabilitation. Patient made steady functional gains and improved from a mod level to a SBA level for self care and mobility, including ambulation with the use of a front wheeled walker, and DC for wheelchair mobility. Patient's cognitive status also improved. Family safely trained in supervision for self care and mobility. Patient is being discharged home with recommendations for home health PT and OT follow up. DME recommendations: FWW; BSC; Shower Chair Patient will follow up with PMD upon DC. Primary Care Provider Care Physician JORGITO Sanabria MD Aug 03, 2017 10:16
== END 2017-08-03 11:30 | disposition home health service (06) | DRG 57 ==
LOC: VRC 14:53
PROVIDERS: ADMIT Physical Medicine & Rehabilitation; ATTEND Internal Medicine
PROC: F08Z0ZZ Bathing/Showering Techniques Treatment (ICD-10-PCS; principal; 2017-07-29)
PROC: F08Z2ZZ Grooming/Personal Hygiene Treatment (ICD-10-PCS; 2017-07-29)
PROC: F08Z1ZZ Dressing Techniques Treatment (ICD-10-PCS; 2017-07-29)
PROC: F07Z5ZZ Bed Mobility Treatment (ICD-10-PCS; 2017-07-29)
PROC: F07Z8ZZ Transfer Training Treatment (ICD-10-PCS; 2017-07-29)
PROC: F07Z9ZZ Gait Training/Functional Ambulation Treatment (ICD-10-PCS; 2017-07-29)
PROC: F06ZDZZ Swallowing Dysfunction Treatment (ICD-10-PCS; 2017-07-29)
DX: I69.153 Hemiplegia and hemiparesis following nontraumatic intracerebral hemorrhage affecting right non-dominant side (principal); I50.30 Unspecified diastolic (congestive) heart failure; I44.7 Left bundle-branch block, unspecified; I11.0 Hypertensive heart disease with heart failure; R13.10 Dysphagia, unspecified; R53.1 Weakness; G31.84 Mild cognitive impairment of uncertain or unknown etiology; Z74.09 Other reduced mobility; E78.5 Hyperlipidemia, unspecified; M18.11 Unilateral primary osteoarthritis of first carpometacarpal joint, right hand
CPT/HCPCS: 73120; 80053; 80061; 81003; 84443; 85025; 87081; 87086; 92507; 92523; 92610; 97110; 97112; 97116; 97150; 97163; 97167; 97530; 97535; 97542; L1932; L2820; L3675